=== PATIENT | female | born 1980 ===

== ENCOUNTER 2019-02-19 18:29 | Inpatient (IN) | payer OTHER ==
[~2019-02-19] VITALS: Ht 157.5 cm; Wt 158.0 kg
[2019-02-19] MEDS ORDERED: PRENATABS RX T1 EACH PO (23:44)
== END 2019-02-21 13:59 | disposition home or self-care (01) | DRG 807 ==
LOC: LDR 18:29 → OB/GYN 18:29
PROVIDERS: ADMIT Obstetrics & Gynecology
PROC: 10E0XZZ Delivery of Products of Conception, External Approach (ICD-10-PCS; principal; 2019-02-19)
PROC: 0KQM0ZZ Repair Perineum Muscle, Open Approach (ICD-10-PCS; 2019-02-19)
PROC: 4A1HXCZ Monitoring of Products of Conception, Cardiac Rate, External Approach (ICD-10-PCS; 2019-02-19)
DX: O70.1 Second degree perineal laceration during delivery (principal); Z37.0 Single live birth; Z3A.38 38 weeks gestation of pregnancy; Z22.330 Carrier of Group B streptococcus